=== PATIENT | female | born 1985 | race Caucasian/White ===

== ENCOUNTER 2020-10-16 17:19 | Emergency (ER) | payer SELFPAY ==
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
[2020-10-16 18:26] LABS: Bilirubin,Urine NEG (Negative); Blood,Urine NEG (Negative); Color,Urine Yellow (Yellow); Hyaline Casts,Urine 1 /LPF; Mucus,Urine 3+ /HPF
[2020-10-16 18:26] LABS: Basophils % (Auto) 0.7 % (0.0-1.8); Eosinophils % (Auto) 0.4 % (0.0-4.3); Hematocrit 43.5 % (30.3-42.9); Hemoglobin 14.7 gm/dl (10.1-14.3); Lymphocytes # (Auto) 1.8 K/mm3 (1.2-5.4); Mean Corpuscular HGB Conc 34 % (30-34); Mean Corpuscular Volume 87 fl (79-97); Monocytes # (Auto) 0.9 K/mm3 (0.0-0.8); Platelet Count 301 K/mm3 (140-440); Red Blood Count 4.99 M/mm3 (3.65-5.03); Red Cell Distribution Width 13.5 % (13.2-15.2)
[2020-10-16 18:30] LABS: Amphetamine Screen,Urine Negative; Benzodiazepines Screen,Urine Negative; Cannabinoid Screen,Urine Negative; Cocaine Screen,Urine Negative; Methadone Screen,Urine Negative; Opiate Screen,Urine Negative
[2020-10-16 18:47] LABS: Blood Urea Nitrogen 13 mg/dL (7-17); Calcium 9.9 mg/dL (8.4-10.2); Hemolysis Index 10
[2020-10-16 18:49] LABS: BUN/Creatinine Ratio 19
[2020-10-16] MEDS ORDERED: POTASSIUM CHLORIDE ER 20 MEQ TAB PO ONE (19:33)
[2020-10-16] MEDS: NITROFURANTOIN MONOHYD/M-CRYST 100 MG CAP PO SCH (21:54)
--- NOTE | 2020-10-17 09:56 | Consultation ---
History of Present Illness - Reason for Consult Consult date: 10/17/20 Reason for consult: paranoid, hallucinating - History of Present Psychiatric Illness Kayli Patel is a 35y/o female patient who presented to the ER after seeing counselor for poor coping skills, not sleeping, paranoid and worsening of schizophrenia. During my interview with the patient today, she is awake. Her behavior is bizarre. She is anxious. She appears to be responding to internal stimuli. The patient is a/o x 3. When asked why did she come to the hospital, the patient states, "my mom and dad called because I didn't have a job." At this point she sits on side of the chair and begins breathing hard and making weird sounds. The patient is also making gagging sounds and motions as if she's about to vomit. She says she "hasn't been eating or sleeping and not taking care of myself." The patient then starts turning her head quickly to the left and right, she is moaning and throwing her head back and then staring at the wall. When asking the patient what was going on, she says "I feel like someone's stabbing me." Then then continues to breath hard and makes noises. When asking further questions the patient continued to snatch her head back and forth. PAST PSYCHIATRIC HISTORY: Diagnoses:schizophrenia Suicide attempts or Self-harm behavior: would not answer Prior psychiatric hospitalizations: Yes Substance Abuse history: Denies Previous psychiatric medications tried: would not answer Outpatient treatment: Yes, per chart PAST MEDICAL HISTORY: None reported Family Psychiatric History: None reported or documented SOCIAL HISTORY Unable to get the patient engaged long enough REVIEW OF SYSTEMS Constitutional: Negative for weight loss ENT: Negative for stridor Respiratory: Negative for cough or hemoptysis All other systems reviewed and are negative MENTAL STATUS EXAMINATION General Appearance and Behavior: Age appropriate, good hygiene, wearing appropriate clothes, fair eye contact, bizarre Cooperation: Guarded Psychomotor Behavior: Psychomotor normal Mood: "okay" Affect and affective range: Restricted Thought Process: illogical Thought Content: Responding to internal stimuli Speech: Normal tone and pace Suicidal Ideation: Homicidal Ideation: Denies Impulse Control: Impaired Insight and Judgment: Limited insight and judgment, Memory: Limited Attention: Divided attention impaired Orientation: Alert Assessment and Plan (1) Paranoid Schizophrenia RECOMMENDATIONS MEDICATIONS: Risperidone 0.25mg po BID Trazodone 50mg po qhs Hydroxyzine 25mg po BID Risks, benefits and alternatives of medications discussed with the patient, questions answered and consent obtained from patient. PSYCHOTHERAPY: Supportive psychotherapy provided MEDICAL: Per primary team DELIRIUM PRECAUTIONS: Please re-orient patient frequently, keep lights on during the day, and minimize benzodiazepines and opiates as these medications could worsen patient's confusion. HEALTH COMMISSIONER: Defer to primary DISPOSITION: Recommend acute inpatient psychiatric hospitalization. Will follow. Thank you for this consult. Case staffed with Dr. Durham. Medications and Allergies Allergies Allergy/AdvReac Type Severity Reaction Status Date / Time amoxicillin Allergy Unknown Verified 05/30/16 06:46 Home Medications Medication Instructions Recorded Confirmed Last Taken Type No Known Home Medications [No 10/16/20 10/16/20 Unknown History Reported Home Medications] Active Meds: Active Medications Nitrofurantoin Macrocrystals (Macrobid) 100 mg PO BID AURELIANO Last Admin: 10/16/20 21:54 Dose: 100 mg Documented by: Mental Status Exam - Vital signs Last Vital Signs Temp 98.1 F 10/17/20 08:26 Pulse 128 H 10/17/20 08:26 Resp 16 10/17/20 09:21 BP 134/68 10/17/20 08:26 Pulse Ox 98 10/17/20 08:26 Results Result Diagrams: 10/16/20 18:06 10/16/20 18:06 Abnormal lab results 10/16/20 10/16/20 10/16/20 Range/Units 18:06 18:06 18:06 Hgb 14.7 H (10.1-14.3) gm/dl Hct 43.5 H (30.3-42.9) % Banner % (Auto) 13.0 H (0.0-7.3) % Banner # (Auto) 0.9 H (0.0-0.8) K/mm3 Potassium 3.2 L (3.6-5.0) mmol/L Salicylates < 0.3 L (2.8-20.0) mg/dL Acetaminophen (10.0-30.0) ug/mL 10/16/20 Range/Units 18:06 Hgb (10.1-14.3) gm/dl Hct (30.3-42.9) % Banner % (Auto) (0.0-7.3) % Banner # (Auto) (0.0-0.8) K/mm3 Potassium (3.6-5.0) mmol/L Salicylates (2.8-20.0) mg/dL Acetaminophen 5.0 L (10.0-30.0) ug/mL All other labs normal.
[2020-10-17] MEDS: NITROFURANTOIN MONOHYD/M-CRYST 100 MG CAP PO SCH ×2 (10:41→22:08)
[2020-10-17] MEDS: risperiDONE 0.25 MG TAB PO SCH ×2 (10:41→22:08)
[2020-10-17] MEDS: hydrOXYzine HCL 25 MG TAB PO SCH ×2 (11:58→22:09)
[2020-10-17 12:13] LABS: Blood Urea Nitrogen 13 mg/dL (7-17); Calcium 10.1 mg/dL (8.4-10.2); Hemolysis Index 4
[2020-10-17 12:18] LABS: BUN/Creatinine Ratio 22
[2020-10-17] MEDS ORDERED: traZODone 50 MG TAB PO SCH (22:00)
[2020-10-18 08:22] VITALS: BP 139/93
--- NOTE | 2020-10-18 09:24 | Progress Note ---
Subjective - Reason for Consult Consult date: 10/18/20 Reason for consult: psychosis - Chief Complaint Chief complaint: During my interview with the patient today, she was much more calm today. She greets me as I'm entering the room. However the patient is still somewhat odd. When mentioning to the patient how she was yesterday, she replied "that's because I didn't have my contacts on." She denies SI/HI, but states "I was, but not so much now." The patient verbalizes seeing "shadows and snowflakes." She says "I think I make people uncomfortable because I can't hear or see so I have to lean in." She also says, "I haven't been sleeping or eating." The nurse caring for the patient states she was up all night and she has been accepted into an inpatient facility. REVIEW OF SYSTEMS Constitutional: Negative for weight loss ENT: Negative for stridor Respiratory: Negative for cough or hemoptysis All other systems reviewed and are negative MENTAL STATUS EXAMINATION General Appearance and Behavior: Age appropriate, good hygiene, wearing appropriate clothes, good eye contact, odd Cooperation: Guarded Psychomotor Behavior: Psychomotor normal Mood: "better" Affect and affective range: congruent with stated mood Thought Process: illogical Thought Content: hallucinations Speech: Normal tone and pace Suicidal Ideation: Homicidal Ideation: Denies Impulse Control: Impaired Insight and Judgment: Limited insight and judgment, Memory: Limited Attention: Divided attention impaired Orientation: Alert Assessment and Plan (1) Paranoid Schizophrenia RECOMMENDATIONS MEDICATIONS: Increased Risperidone 0.5mg po BID Increased Trazodone 75mg po qhs Risks, benefits and alternatives of medications discussed with the patient, questions answered and consent obtained from patient. PSYCHOTHERAPY: Supportive psychotherapy provided MEDICAL: Per primary team DELIRIUM PRECAUTIONS: Please re-orient patient frequently, keep lights on during the day, and minimize benzodiazepines and opiates as these medications could worsen patient's confusion. DIGITAL COLOR PRESS OPERATOR: Defer to primary DISPOSITION: Recommend acute inpatient psychiatric hospitalization. Will follow. Thank you for this consult. Case staffed with Dr. Durham. Mental Status Exam - Vital signs Last Vital Signs Temp 97.9 F 10/18/20 08:22 Pulse 82 10/18/20 08:22 Resp 18 10/18/20 08:22 BP 139/93 10/18/20 08:22 Pulse Ox 98 10/18/20 08:22
[2020-10-18] MEDS ORDERED: risperiDONE 0.25 MG TAB PO SCH (10:00)
[2020-10-18] MEDS: hydrOXYzine HCL 25 MG TAB PO SCH (11:29)
[2020-10-18] MEDS: NITROFURANTOIN MONOHYD/M-CRYST 100 MG CAP PO SCH ×2 (11:29→12:20)
[2020-10-18] MEDS ORDERED: ACETAMINOPHEN 325 MG TAB ONE (14:52)
[2020-10-18] MEDS ORDERED: ACETAMINOPHEN 325 MG TAB PO ONE (14:57)
[2020-10-18] MEDS ORDERED: traZODone 50 MG TAB PO SCH (22:00)
== END 2020-10-18 18:39 ==
LOC: ED 17:19
DX: F23 Brief psychotic disorder (principal); N39.0 Urinary tract infection, site not specified; F25.1 Schizoaffective disorder, depressive type; F41.9 Anxiety disorder, unspecified; Z20.828 Contact with and (suspected) exposure to other viral communicable diseases; Z88.0 Allergy status to penicillin
CPT/HCPCS: 36415; 80048; 80307; 81001; 84703; 85025; 99285; U0003; 80320; G0480

== ENCOUNTER 2022-05-07 16:24 | Emergency (ER) | payer OTHER ==
--- NOTE | 2022-05-07 17:45 | XRay Report ---
CHEST 2 VIEWS INDICATION / CLINICAL INFORMATION: rib pain. COMPARISON: None available. FINDINGS: SUPPORT DEVICES: None. HEART / MEDIASTINUM: No significant abnormality. LUNGS / PLEURA: No significant pulmonary or pleural abnormality. No pneumothorax. ADDITIONAL FINDINGS: No significant additional findings. IMPRESSION: 1. No acute findings. Signer Name: Melvin Anguiano DO Signed: 05/07/2022 5:40 PM Workstation Name: [id number]
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
[2022-05-07 23:33] VITALS: BP 123/74
== END 2022-05-07 23:50 | disposition home or self-care (01) ==
LOC: ED 16:24
DX: R07.9 Chest pain, unspecified (principal)
CPT/HCPCS: 71046; 99283